=== PATIENT | female | born 1945 | race Caucasian/White ===

== ENCOUNTER 2017-06-23 01:14 | Inpatient (IN) | payer OTHER, BC ==
[2017-06-23] VITALS (7 sets, daily range): BP systolic 122–148; BP diastolic 57–72
[~2017-06-23] VITALS: Ht 162.6 cm; Wt 92.0 kg
[2017-06-23 02:05] LABS: HEMATOCRIT 45.7 % (36.0-46.0); MCH 28.5 PG (29.0-34.0); MCHC 32.4 G/DL (30.0-36.0); MCV 87.9 FL (83-99); MEAN PLAT.VOLUME 10.6 uM^3 (9.5-12.4); PLATELET COUNT 215 K/uL (156-360); RBC DIS.WIDTH-CV 12.8 % (11.8-14.6); RBC DIS.WIDTH-SD 41.1 % (39-53); WHITE BLOOD COUNT 14.8 K/uL (4.1-10.2)
[2017-06-23 02:19] LABS: CHLORIDE 104 mEq/L (99-109); POTASSIUM 4.2 mEq/L (3.7-5.4); SODIUM 140 mEq/L (136-147)
[2017-06-23 02:21] LABS: GLUCOSE 215 mg/dL (70-99)
[2017-06-23 02:22] LABS: ANION GAP 9 MEQ/L (2-14)
[2017-06-23 02:25] LABS: GFR ESTIMATE (CALCULATED) > 59 mL/min/
[2017-06-23 02:26] LABS: UREA NITROGEN (BUN) 15 mg/dL (9-23)
[2017-06-23 02:33] LABS: TROP-I INTERPRETATION NEGATIVE; TROPONIN-I < 0.01 ng/mL (0.0-0.30)
[2017-06-23] MEDS ORDERED: OMEPRAZOLE20 MG PO (04:16)
[2017-06-23] MEDS ORDERED: METOCLOPRAMIDE H5 MG PO (04:16)
[2017-06-23] MEDS ORDERED: ATORVASTATIN CA40 MG PO (04:16)
[2017-06-23 07:54] LABS: Estimated Average Glucose 183 mg/dL (70-123)
[2017-06-23 08:22] LABS: POINT-OF-CARE METER ID UU13113700
[2017-06-23 08:24] LABS: TROP-I INTERPRETATION NEGATIVE; TROPONIN-I < 0.01 ng/mL (0.0-0.30)
[2017-06-23 12:02] LABS: POINT-OF-CARE METER ID UU13113831
[2017-06-23] MEDS ORDERED: ASPIR 8181 M1 PO (12:15)
[2017-06-23] MEDS ORDERED: LOPRESSOR25 MG PO (16:34)
[2017-06-23 18:24] LABS: EOSINOPHIL (%) 1.2 % (0-5); EOSINOPHIL COUNT 0.1 K/uL (0-0.3); HEMATOCRIT 41.6 % (36.0-46.0); IMMATURE GRANULOCYTE (%) 0.1 % (0.0-0.7); INSTRUMENT ABS NEUTROPHIL CT 4.8 K/uL; MCH 29.5 PG (29.0-34.0); MCHC 33.2 G/DL (30.0-36.0); MCV 88.9 FL (83-99); MEAN PLAT.VOLUME 11.2 uM^3 (9.5-12.4); MONOCYTE (%) 6.9 % (3-12); MONOCYTE COUNT 0.5 K/uL (0-0.8); NEUTROPHIL (%) 64.5 % (45-76); NEUTROPHIL COUNT 4.8 K/uL (1.8-6.4); PLATELET COUNT 192 K/uL (156-360); RBC DIS.WIDTH-CV 13.1 % (11.8-14.6); RBC DIS.WIDTH-SD 42.6 % (39-53); RED BLOOD COUNT 4.68 M/uL (3.80-5.20); WHITE BLOOD COUNT 7.4 K/uL (4.1-10.2)
[2017-06-23 18:42] LABS: ALKALINE PHOSPHATASE 76 IU/L (3-129); ANION GAP 8 MEQ/L (2-14); CHLORIDE 104 MEQ/L (99-109); GFR ESTIMATE (CALCULATED) > 59 mL/min/; GLUCOSE 253 mg/dL (70-99); POTASSIUM 4.1 MEQ/L (3.7-5.4); SAMPLE HEMOLYSIS CHECK 0; SAMPLE ICTERIC CHECK 0; SAMPLE LIPEMIA CHECK 0; SODIUM 138 MEQ/L (136-147); TOTAL BILIRUBIN 0.8 MG/DL (0.0-1.0); UREA NITROGEN (BUN) 13 mg/dL (9-23)
[2017-06-23 18:45] LABS: TROP-I INTERPRETATION NEGATIVE; TROPONIN-I < 0.01 ng/mL (0.0-0.30)
[2017-06-24 00:33] VITALS: BP 128/58
[2017-06-24 05:31] VITALS: BP 105/50
[2017-06-24 05:53] LABS: EOSINOPHIL (%) 2.3 % (0-5); EOSINOPHIL COUNT 0.2 K/uL (0-0.3); HEMATOCRIT 39.6 % (36.0-46.0); IMMATURE GRANULOCYTE (%) 0.3 % (0.0-0.7); INSTRUMENT ABS NEUTROPHIL CT 3.9 K/uL; LYMPHOCYTE COUNT 2.3 K/uL (1.0-2.8); MCH 29.5 PG (29.0-34.0); MCHC 32.8 G/DL (30.0-36.0); MCV 89.8 FL (83-99); MEAN PLAT.VOLUME 11.6 uM^3 (9.5-12.4); MONOCYTE COUNT 0.6 K/uL (0-0.8); NEUTROPHIL (%) 55.4 % (45-76); NEUTROPHIL COUNT 3.9 K/uL (1.8-6.4); PLATELET COUNT 191 K/uL (156-360); RBC DIS.WIDTH-CV 13.1 % (11.8-14.6); RBC DIS.WIDTH-SD 42.9 % (39-53); RED BLOOD COUNT 4.41 M/uL (3.80-5.20)
[2017-06-24 06:16] LABS: ANION GAP 7 MEQ/L (2-14); CHLORIDE 105 MEQ/L (99-109); GFR ESTIMATE (CALCULATED) > 59 mL/min/; GLUCOSE 174 mg/dL (70-99); POTASSIUM 4.1 MEQ/L (3.7-5.4); SAMPLE HEMOLYSIS CHECK 0; SAMPLE ICTERIC CHECK 0; SAMPLE LIPEMIA CHECK 0; SODIUM 141 MEQ/L (136-147); UREA NITROGEN (BUN) 14 mg/dL (9-23)
[2017-06-24 08:24] LABS: POINT-OF-CARE METER ID UU14174216
[2017-06-24 08:28] VITALS: BP 126/59
[2017-06-24] MEDS ORDERED: NITROSTAT0.4 MG SL (08:38)
== END 2017-06-24 11:00 | disposition home or self-care (01) | DRG 392 ==
LOC: EME 01:14 → EDOF 03:17 → 5WEST 03:17 → ENRESERV 03:19 → 5WEST 04:28 → ENRESERV 13:24 → 5WEST 13:24 → ENRESERV 16:39 → 5WEST 16:48 → ENRESERV 17:20 → 4EAST 17:36 → ENPENDDIS 06-24 → 4EAST 06-24 11:00
PROVIDERS: Hospitalist; Physician Assistant Medical
DX: K21.9 Gastro-esophageal reflux disease without esophagitis (principal); R10.13 Epigastric pain; R07.9 Chest pain, unspecified; K31.84 Gastroparesis; K29.70 Gastritis, unspecified, without bleeding; I25.10 Atherosclerotic heart disease of native coronary artery without angina pectoris; I25.2 Old myocardial infarction; I10 Essential (primary) hypertension; F41.9 Anxiety disorder, unspecified; E78.5 Hyperlipidemia, unspecified; E11.43 Type 2 diabetes mellitus with diabetic autonomic (poly)neuropathy; Z95.5 Presence of coronary angioplasty implant and graft; K21.0 Gastro-esophageal reflux disease with esophagitis; E11.65 Type 2 diabetes mellitus with hyperglycemia; Z79.4 Long term (current) use of insulin; R94.31 Abnormal electrocardiogram [ECG] [EKG]; Z79.899 Other long term (current) drug therapy; E66.9 Obesity, unspecified; Z68.34 Body mass index [BMI] 34.0-34.9, adult; Z88.5 Allergy status to narcotic agent; D72.829 Elevated white blood cell count, unspecified
CPT/HCPCS: 71020; 80048; 80053; 82948; 83036; 84484; 85025; 85027; 93005; 99281; 99284; C1769; C1887; J1644; J2250; J3010; J7040

== ENCOUNTER 2018-06-06 21:43 | Emergency (ER) | payer OTHER, BC ==
[~2018-06-06] VITALS: Ht 160 cm; Wt 92.1 kg
[~2018-06-06 21:43] MED LIST: ASPIR 8181 M1 PO; ATORVASTATIN CA40 MG PO; LOPRESSOR25 MG PO; METOCLOPRAMIDE H5 MG PO; NITROSTAT0.4 MG SL; OMEPRAZOLE20 MG PO
[2018-06-06 22:30] LABS: HEMATOCRIT 43.7 % (36.0-46.0); HEMOGLOBIN 14.5 G/DL (11.9-15.5); MCH 28.6 PG (29.0-34.0); MCHC 33.2 G/DL (30.0-36.0); MCV 86.2 FL (83-99); PLATELET COUNT 233 K/uL (156-360); RED BLOOD COUNT 5.07 M/uL (3.80-5.20); WHITE BLOOD COUNT 7.9 K/uL (4.1-10.2)
[2018-06-06 22:37] LABS: INTER. NORMALIZED RATIO 1.1
[2018-06-06 22:40] LABS: PTT 26.4 SEC (25-37)
[2018-06-06 22:43] LABS: CHLORIDE 103 mEq/L (99-109); POTASSIUM 3.7 mEq/L (3.7-5.4); SODIUM 138 mEq/L (136-147)
[2018-06-06 22:45] LABS: GLUCOSE 223 mg/dL (70-99); TOTAL PROTEIN 6.9 g/dL (6.4-8.3)
[2018-06-06 22:47] LABS: TOTAL BILIRUBIN 0.8 mg/dL (0.0-1.0)
[2018-06-06 22:49] LABS: ALKALINE PHOSPHATASE 77 IU/L (3-129); CREATININE 0.7 mg/dL (0.6-1.3); GFR ESTIMATE (CALCULATED) > 59 mL/min/
[2018-06-06 22:50] LABS: UREA NITROGEN (BUN) 11 mg/dL (9-23)
[2018-06-06 22:51] LABS: AST (GOT) 24 IU/L (2-34)
[2018-06-06 22:52] LABS: ALT (GPT) 21 IU/L (3-49); LIPASE 24 U/L (1.0-51.0)
[2018-06-06 22:53] LABS: TROP-I INTERPRETATION NEGATIVE; TROPONIN-I < 0.01 ng/mL (0.0-0.30)
[2018-06-07] MEDS ORDERED: AMOXICILLIN500 MG PO (02:53)
[2018-06-07] MEDS ORDERED: MECLIZINE HCL25 MG PO (02:54)
[2018-06-07] MEDS ORDERED: ZOFRAN4 MG PO (02:54)
[2018-06-07 03:23] VITALS: BP 138/65
== END 2018-06-07 00:32 | disposition home or self-care (01) ==
LOC: EME → EDBD 21:43 → EME 21:43
PROVIDERS: Emergency Medicine
DX: H66.90 Otitis media, unspecified, unspecified ear (principal); H81.391 Other peripheral vertigo, right ear; E78.5 Hyperlipidemia, unspecified; I25.2 Old myocardial infarction; F32.9 Major depressive disorder, single episode, unspecified; F41.9 Anxiety disorder, unspecified; K21.9 Gastro-esophageal reflux disease without esophagitis; Z90.49 Acquired absence of other specified parts of digestive tract; Z88.5 Allergy status to narcotic agent
CPT/HCPCS: 70450; 80053; 83690; 84484; 85027; 85610; 85730; 93005; 99281; 99285; J2405; J7030